=== PATIENT | male | born 1950 | race Caucasian/White ===

== ENCOUNTER 2017-06-27 17:52 | Emergency (ER) | payer OTHER ==
[~2017-06-27] VITALS: Ht 188 cm; Wt 104.3 kg
[~2017-06-27 17:52] MED LIST: ASPI81 PO; BROMDAY OP; CIPR500T2 PO; FENO50TA PO; LORT5TAB PO; PRED1%O OU; ROSU40 PO; TOPR25TA2 PO
[2017-06-27 18:01] VITALS: BP 174/90; PULSE 85; RESP 16; TEMP 97.4; O2SAT 99
[2017-06-27] MEDS ORDERED: METO50TA PO (18:30)
[2017-06-27] MEDS ORDERED: ATOR40TA16 PO (18:30)
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
== END 2017-06-27 19:56 | disposition home or self-care (01) ==
LOC: PHEFT 17:52
DX: M25.519 Pain in unspecified shoulder (principal); V43.52XA Car driver injured in collision with other type car in traffic accident, initial encounter; I10 Essential (primary) hypertension; E78.00 Pure hypercholesterolemia, unspecified; Z79.82 Long term (current) use of aspirin
CPT/HCPCS: 99282